=== PATIENT | female | born 1950 | race Caucasian/White ===

== ENCOUNTER 2019-11-18 13:53 | Inpatient (IN) | payer MEDICARE, OTHER ==
[~2019-11-18] VITALS: Ht 162.6 cm; Wt 91.2 kg
[2019-11-18] MEDS ORDERED: ONDANSETRON HCL 4MG/2ML INJ IV STA (14:10)
[2019-11-18] MEDS ORDERED: SODIUM CHLORIDE 0.9% 1,000 ML IV ONE (14:10)
[2019-11-18 14:45] LABS: HEMOGLOBIN. 11.8 g/dL (12.0-16.0); MEAN CORPUSCULAR HEMOGLOBIN 29.2 pg (28.0-32.0); MEAN CORPUSCULAR VOLUME 86.9 fL (81.0-99.0); MEAN PLATELET VOLUME 8.6 fl (7.4-10.4); PLATELET 275 x1000/uL (130-400); RED BLOOD CELL COUNT 4.03 mill/uL (4.2-5.4); RED CELL DISTRIBUTION WIDTH 15.1 % (11.6-14.6)
[2019-11-18 14:54] LABS: CHLORIDE 104 mEq/L (98-107)
[2019-11-18 14:57] LABS: ETHANOL BLOOD < 10 mg/dL
[2019-11-18 15:02] LABS: CREATINE KINASE 172 IU/L (26-192); PLATELET ESTIMATE NORMAL
[2019-11-18 16:23] LABS: CLARITY URINE CLEAR (CLEAR); COLOR URINE YELLOW (YELLOW); KETONES URINE 1+ (NEGATIVE); LEUKOCYTE ESTERASE URINE NEGATIVE (NEGATIVE); NITRITE URINE NEGATIVE (NEGATIVE); OCCULT BLOOD URINE NEGATIVE (NEGATIVE); PROTEIN URINE TRACE (NEGATIVE); SPECIFIC GRAVITY URINE 1.014 (1.005-1.030); UROBILINOGEN URINE 0.2 E.U./dL (0.2-1.0)
[2019-11-18 16:33] LABS: *AMPHETAMINES SCREEN URINE NEGATIVE (NEGATIVE); *BARBITURATES SCREEN URINE NEGATIVE (NEGATIVE); *BENZODIAZEPINES SCREEN URINE NEGATIVE (NEGATIVE); *COCAINE SCREEN URINE NEGATIVE (NEGATIVE); METHADONE URINE SCREEN NEGATIVE (NEGATIVE)
[2019-11-18 16:34] LABS: CANNABINOID URINE SCREEN NEGATIVE (NEGATIVE); OPIATES URINE SCREEN NEGATIVE (NEGATIVE); PHENCYCLIDINE URINE SCREEN NEGATIVE (NEGATIVE)
[2019-11-18] MEDS ORDERED: SODIUM CHLORIDE 0.9% 1000ML BAG (SEPSIS BOLUS) IV ONE (17:15)
[2019-11-18] MEDS ORDERED: SODIUM CHLORIDE 0.9% 1,000 ML IV SCH (17:15)
[2019-11-18] MEDS ORDERED: CEFTRIAXONE 1 G PREMIX 50 ML IV ONE (17:15)
[2019-11-18] MEDS ORDERED: ACETAMINOPHEN 500MG TABLET PO ONE (17:15)
[2019-11-19] VITALS (7 sets, daily range): BP systolic 143–227; BP diastolic 60–107
[2019-11-19] MEDS ORDERED: ONDANSETRON HCL 4MG/2ML INJ IV PRN ×2 (01:15→17:30)
[2019-11-19] MEDS ORDERED: ACETAMINOPHEN 325MG TABLET PO PRN ×2 (01:15→17:30)
[2019-11-19] MEDS: HYDRALAZINE 20MG/ML VIAL IV PRN ×2 (02:00→17:09)
[2019-11-19] MEDS: SODIUM CHLORIDE 0.45% 1,000 ML IV SCH ×2 (04:10→17:00)
[2019-11-19] MEDS: PIPERACILLIN/TAZOBACTAM 3.375 G in DEXT 5% WATER 100 ML IV SCH ×4 (05:35→23:59)
[2019-11-19] MEDS ORDERED: PIPERACILLIN/TAZOBACTAM 3.375 G/VIAL IV SCH (06:00)
[2019-11-19 06:31] LABS: HEMATOCRIT. 34.1 % (36.0-48.0); HEMOGLOBIN. 11.5 g/dL (12.0-16.0); MEAN CORPUSCULAR HEMOGLOBIN 29.5 pg (28.0-32.0); MEAN CORPUSCULAR VOLUME 87.6 fL (81.0-99.0); MEAN PLATELET VOLUME 8.9 fl (7.4-10.4); PLATELET 227 x1000/uL (130-400)
[2019-11-19 06:39] LABS: CHLORIDE 106 mEq/L (98-107)
[2019-11-19 06:46] LABS: LDL CHOLESTEROL 75 mg/dL (5-100)
[2019-11-19 06:47] LABS: HDL CHOLESTEROL 106 mg/dL (40-59)
[2019-11-19] MEDS ORDERED: METOPROLOL TARTRATE 25MG TABLET PO SCH (12:30)
[2019-11-19 15:51] LABS: BG BASE EXCESS -2.9 mmol/L (-2.0-2.0); BG CARBOXYHEMOGLOBIN 0.6 % (0.5-1.5); BG DEOXYHEMOGLOBIN 5.4 % (0.0-5.0); BG FRACTION INSPIRED OXYGEN 21; BG HCO3 ACT 20.2 mmol/L (22.0-26.0); BG OXYGEN SATURATION 94.6 % (92.0-98.5); BG PCO2 30.2 mmHg (35.0-45.0); BG PH 7.443 (7.350-7.450); BG PO2 71.8 mmHg (75.0-100.0); BG SAMPLE SITE RIGHT RADIAL; BG TOTAL HEMOGLOBIN 12.2 g/dL (12.0-18.0); BG VENT MODE ROOM AIR
[2019-11-19 16:41] LABS: CREATINE KINASE MB FRACTION 4.4 ng/mL (0.5-3.6)
[2019-11-19 17:15] LABS: PLATELET ESTIMATE NORMAL
[2019-11-19] MEDS ORDERED: ACETAMINOPHEN 650MG SUPP PR PRN (17:30)
[2019-11-19] MEDS ORDERED: HYDROCODONE/ACETAMINOPHEN 5/325MG TABLET PO PRN (17:30)
[2019-11-19] MEDS ORDERED: MAGNESIUM/ALUMINUM HYDROXIDE/SIMETHICONE 30ML UDC PO PRN (17:30)
[2019-11-19] MEDS ORDERED: CLONIDINE 0.1MG TABLET PO PRN (17:30)
[2019-11-19] MEDS ORDERED: IPRATROPIUM/ALBUTEROL 0.5-3(2.5)MG/3ML NEB HHN PRN (17:30)
[2019-11-19] MEDS ORDERED: DOCUSATE SODIUM 100MG CAPSULE PO PRN (17:30)
[2019-11-19] MEDS ORDERED: DIPHENHYDRAMINE 50MG/ML VIAL IV PRN (17:30)
[2019-11-19] MEDS ORDERED: CLONIDINE 0.1MG TABLET PO NR (18:30)
[2019-11-19] MEDS: ASPIRIN 81MG EC TABLET PO SCH (18:55)
[2019-11-19] MEDS ORDERED: POTASSIUM CHLORIDE INJ 40 MEQ in DEXT 5% WATER 500 ML IV NR (21:00)
[2019-11-19 23:32] LABS: CREATINE KINASE MB FRACTION 3.4 ng/mL (0.5-3.6)
[2019-11-20] VITALS: BP 145/85
[2019-11-20 04:00] VITALS: BP 176/68
[2019-11-20] MEDS: SODIUM CHLORIDE 0.45% 1,000 ML IV SCH (05:13)
[2019-11-20] MEDS: PIPERACILLIN/TAZOBACTAM 3.375 G in DEXT 5% WATER 100 ML IV SCH ×4 (05:13→23:53)
[2019-11-20 07:20] LABS: HEMATOCRIT 32.4 % (36.0-48.0); HEMOGLOBIN 10.9 g/dL (12.0-16.0); MEAN CORPUSCULAR HEMOGLOBIN 29.3 pg (28.0-32.0); MEAN CORPUSCULAR VOLUME 86.9 fL (81.0-99.0); PLATELET 237 x1000/uL (130-400); RED BLOOD CELL COUNT 3.72 mill/uL (4.2-5.4); RED CELL DISTRIBUTION WIDTH 15.4 % (11.6-14.6)
[2019-11-20 07:21] LABS: CHLORIDE 101 mEq/L (98-107)
[2019-11-20 08:00] VITALS: BP 182/80
[2019-11-20] MEDS: ASPIRIN 81MG EC TABLET PO SCH (09:28)
[2019-11-20] MEDS: METOPROLOL TARTRATE 25MG TABLET PO SCH ×2 (09:28)
[2019-11-20] MEDS: HYDRALAZINE 20MG/ML VIAL IV PRN (10:47)
[2019-11-20 12:00] VITALS: BP 192/86
[2019-11-20] MEDS ORDERED: HYDRALAZINE 20MG/ML VIAL IV SCH (14:15)
[2019-11-20] MEDS ORDERED: CLONIDINE 0.1MG TABLET PO SCH (14:15)
[2019-11-20 16:00] VITALS: BP 155/57
[2019-11-20] MEDS: FOLIC ACID 1MG TABLET PO SCH (16:30)
[2019-11-20] MEDS: MULTIVITAMINS,THER W-MINERALS TABLET PO SCH (16:31)
[2019-11-20] MEDS: THIAMINE HCL 100MG TABLET PO SCH (16:31)
[2019-11-20] MEDS: AMLODIPINE 5MG TABLET PO SCH (16:31)
[2019-11-20 20:00] VITALS: BP 152/62
[2019-11-20] MEDS: METOPROLOL TARTRATE 50MG TABLET PO SCH (21:44)
[2019-11-20] MEDS: HYDRALAZINE HCL 50MG TABLET PO SCH (21:44)
[2019-11-21] VITALS: BP 132/52
[2019-11-21 04:00] VITALS: BP 144/51
[2019-11-21] MEDS: HYDRALAZINE HCL 50MG TABLET PO SCH ×2 (06:00→14:32)
[2019-11-21] MEDS: PIPERACILLIN/TAZOBACTAM 3.375 G in DEXT 5% WATER 100 ML IV SCH ×2 (06:05→13:00)
[2019-11-21 07:01] LABS: BASOPHILS % 0.8 % (0.0-2.0); EOSINOPHILS % 2.4 % (0.0-5.0); HEMATOCRIT. 34.7 % (36.0-48.0); HEMOGLOBIN. 11.8 g/dL (12.0-16.0); LYMPHOCYTES % 9.7 % (20.0-50.0); MEAN CORPUSCULAR HEMOGLOBIN 29.9 pg (28.0-32.0); MEAN CORPUSCULAR VOLUME 87.9 fL (81.0-99.0); MEAN PLATELET VOLUME 8.8 fl (7.4-10.4); MONOCYTES % 9.5 % (2.0-8.0); NEUTROPHILS % 77.6 % (40.0-76.0); PLATELET 229 x1000/uL (130-400); RED BLOOD CELL COUNT 3.94 mill/uL (4.2-5.4); RED CELL DISTRIBUTION WIDTH 14.7 % (11.6-14.6)
[2019-11-21 07:14] LABS: CHLORIDE 100 mEq/L (98-107)
[2019-11-21 08:00] VITALS: BP 156/60
[2019-11-21] MEDS: MULTIVITAMINS,THER W-MINERALS TABLET PO SCH (10:53)
[2019-11-21] MEDS: ASPIRIN 81MG EC TABLET PO SCH (10:53)
[2019-11-21] MEDS: FOLIC ACID 1MG TABLET PO SCH (10:54)
[2019-11-21] MEDS: AMLODIPINE 5MG TABLET PO SCH (10:54)
[2019-11-21] MEDS: THIAMINE HCL 100MG TABLET PO SCH (10:54)
[2019-11-21] MEDS: METOPROLOL TARTRATE 50MG TABLET PO SCH (10:55)
[2019-11-21 12:00] VITALS: BP 169/63
[2019-11-21] MEDS ORDERED: FOLI-43 MT (13:49)
[2019-11-21] MEDS ORDERED: MULT1TAB67 MT (13:49)
[2019-11-21] MEDS ORDERED: THIA100T72 MT (13:49)
[2019-11-21] MEDS ORDERED: HYDR-4135 MT (13:49)
[2019-11-21] MEDS ORDERED: AMLO5TAB4 MT (13:49)
[2019-11-21 14:43] VITALS: BP 169/63
== END 2019-11-21 16:57 | disposition home or self-care (01) | DRG 70 ==
LOC: ER 14:25 → 7WST 17:57 → ENRESERV 23:01
PROVIDERS: ADMIT Internal Medicine; ATTEND Internal Medicine
DX: G93.40 Encephalopathy, unspecified (principal); I50.33 Acute on chronic diastolic (congestive) heart failure; J84.9 Interstitial pulmonary disease, unspecified; E87.1 Hypo-osmolality and hyponatremia; M62.82 Rhabdomyolysis; G31.2 Degeneration of nervous system due to alcohol; E87.6 Hypokalemia; F10.10 Alcohol abuse, uncomplicated; I11.0 Hypertensive heart disease with heart failure; D72.829 Elevated white blood cell count, unspecified; R73.9 Hyperglycemia, unspecified; Z78.1 Physical restraint status; Z71.41 Alcohol abuse counseling and surveillance of alcoholic
CPT/HCPCS: 36415; 36600; 70551; 71045; 76700; 80048; 80053; 80061; 80305; 80320; 81003; 82140; 82375; 82550; 82553; 82805; 83605; 83880; 84145; 84443; 84484; 85025; 85027; 87804; 93005; 93306; 97116; 97162; 97530; 97535; 99291; J0360; J0696; J2405; J2543; J3480; J7030; J7060; G0480

== ENCOUNTER 2021-12-06 11:28 | Inpatient (IN) | payer MEDICARE, MEDICAID ==
[~2021-12-06] VITALS: Ht 160 cm; Wt 90.3 kg
[~2021-12-06 11:28] MED LIST: AMLO5TAB4 MT; FOLI-43 MT; HYDR-4135 MT; MULT-622 MT; THIA100T72 MT
[2021-12-06] MEDS ORDERED: FUROSEMIDE 40MG/4ML VIAL IV ONE (12:00)
[2021-12-06 12:20] LABS: HEMATOCRIT. 32.6 % (36.0-48.0); HEMOGLOBIN. 11.1 g/dL (12.0-16.0); MEAN CORPUSCULAR HEMOGLOBIN 28.5 pg (28.0-32.0); MEAN CORPUSCULAR VOLUME 83.8 fL (81.0-99.0); MEAN PLATELET VOLUME 8.3 fl (7.4-10.4); PLATELET 288 x1000/uL (130-400); RED BLOOD CELL COUNT 3.88 mill/uL (4.2-5.4); RED CELL DISTRIBUTION WIDTH 14.1 % (11.6-14.6)
[2021-12-06 12:26] LABS: CHLORIDE 101 mEq/L (98-107)
[2021-12-06] MEDS ORDERED: ASPIRIN 325MG EC TABLET PO NR (13:15)
[2021-12-06] MEDS ORDERED: KCL 10MEQ/50ML PREMIX 50 ML IV NR (13:30)
[2021-12-06] MEDS ORDERED: POTASSIUM CHLORIDE 20MEQ TABLET SR PO NR (13:30)
[2021-12-06 14:01] LABS: PLATELET ESTIMATE NORMAL
[2021-12-06 15:15] LABS: CLARITY URINE TURBID (CLEAR); COLOR URINE YELLOW (YELLOW); KETONES URINE TRACE (NEGATIVE); LEUKOCYTE ESTERASE URINE 2+ (NEGATIVE); NITRITE URINE NEGATIVE (NEGATIVE); OCCULT BLOOD URINE NEGATIVE (NEGATIVE); PH URINE 6.5 (4.5-8.0); PROTEIN URINE NEGATIVE (NEGATIVE); SPECIFIC GRAVITY URINE 1.007 (1.005-1.030); UROBILINOGEN URINE 0.2 E.U./dL (0.2-1.0)
[2021-12-06] MEDS ORDERED: IOHEXOL-350 100 ML BOTTLE ONE (15:23)
[2021-12-06] MEDS ORDERED: CEFTRIAXONE 1 G PREMIX 50 ML IV ONE (15:30)
[2021-12-06 21:00] VITALS: BP 148/64
[2021-12-06] MEDS ORDERED: LISI40TA13 MT (21:27)
[2021-12-06] MEDS ORDERED: PRAV20TA57 MT (21:27)
[2021-12-06] MEDS ORDERED: CITA10SO PO (21:31)
[2021-12-06] MEDS ORDERED: ATEN-42 PO (21:38)
[2021-12-06] MEDS ORDERED: HYDR12.54 PO (21:38)
[2021-12-06] MEDS ORDERED: ZOLPIDEM TARTRATE 5MG TABLET PO PRN (22:15)
[2021-12-06] MEDS ORDERED: CEFTRIAXONE 1 G PREMIX 50 ML IV SCH (22:15)
[2021-12-06] MEDS ORDERED: DOCUSATE SODIUM 100MG CAPSULE PO PRN (22:15)
[2021-12-06] MEDS ORDERED: ACETAMINOPHEN 325MG TABLET PO PRN (22:15)
[2021-12-06] MEDS ORDERED: IPRATROPIUM/ALBUTEROL 0.5-3(2.5)MG/3ML NEB HHN PRN (22:15)
[2021-12-06 22:45] VITALS: BP 148/64
[2021-12-06] MEDS: POTASSIUM CHLORIDE 20MEQ TABLET SR PO SCH (23:41)
[2021-12-06] MEDS: ATORVASTATIN CALCIUM 20MG TABLET PO SCH (23:41)
[2021-12-06] MEDS: FUROSEMIDE 40MG/4ML VIAL IVP SCH (23:41)
[2021-12-06] MEDS: LISINOPRIL 40MG TABLET PO SCH (23:41)
[2021-12-07] VITALS: BP 155/50
[2021-12-07 04:00] VITALS: BP 137/83
[2021-12-07] MEDS: HYDRALAZINE HCL 50MG TABLET PO SCH ×3 (05:52→21:12)
[2021-12-07 07:29] LABS: BASOPHILS % 0.7 % (0.0-2.0); EOSINOPHILS % 3.3 % (0.0-5.0); HEMATOCRIT. 37.4 % (36.0-48.0); LYMPHOCYTES % 9.2 % (20.0-50.0); MEAN CORPUSCULAR HEMOGLOBIN 27.2 pg (28.0-32.0); MEAN CORPUSCULAR VOLUME 84.7 fL (81.0-99.0); MEAN PLATELET VOLUME 8.4 fl (7.4-10.4); MONOCYTES % 12.3 % (2.0-8.0); NEUTROPHILS % 74.5 % (40.0-76.0); PLATELET 277 x1000/uL (130-400); RED BLOOD CELL COUNT 4.42 mill/uL (4.2-5.4); RED CELL DISTRIBUTION WIDTH 14.4 % (11.6-14.6)
[2021-12-07 07:44] LABS: CHLORIDE 99 mEq/L (98-107)
[2021-12-07 08:00] VITALS: BP 135/49
[2021-12-07 08:02] LABS: TOTAL IRON BINDING CAPACITY 381 ug/dL (250-450)
[2021-12-07 08:05] LABS: FOLIC ACID (FOLATE) SERUM 7.7 ng/mL (>5.38)
[2021-12-07] MEDS: FOLIC ACID/VITAMIN B COMP W-C TABLET PO SCH (08:48)
[2021-12-07] MEDS: ENOXAPARIN 40MG/0.4ML SYR SUBCUT SCH (08:48)
[2021-12-07] MEDS: FUROSEMIDE 40MG/4ML VIAL IVP SCH (08:48)
[2021-12-07] MEDS: CEFTRIAXONE 1,000 MG in DEXTROSE 5% WATER 50 ML IV SCH (08:48)
[2021-12-07] MEDS: AMLODIPINE 5MG TABLET PO SCH (08:48)
[2021-12-07] MEDS: FOLIC ACID 1MG TABLET PO SCH (08:49)
[2021-12-07] MEDS: LISINOPRIL 40MG TABLET PO SCH (08:49)
[2021-12-07] MEDS: FAMOTIDINE 20MG TABLET PO SCH ×2 (08:49→21:12)
[2021-12-07] MEDS: THIAMINE HCL 100MG TABLET PO SCH (08:49)
[2021-12-07] MEDS: CITALOPRAM HYDROBROMIDE 10MG TABLET PO SCH (08:49)
[2021-12-07] MEDS ORDERED: ATENOLOL 25MG TABLET PO SCH (09:00)
[2021-12-07 10:04] LABS: BG BASE EXCESS 9.7 mmol/L (-2.0-2.0); BG CARBOXYHEMOGLOBIN 0.9 % (0.5-1.5); BG DEOXYHEMOGLOBIN 2.9 % (0.0-5.0); BG FRACTION INSPIRED OXYGEN 28; BG HCO3 ACT 34.1 mmol/L (22.0-26.0); BG METHEMOGLOBIN 0.3 % (0.0-1.5); BG OXYGEN SATURATION 97.1 % (92.0-98.5); BG OXYHEMOGLOBIN 95.9 % (94.0-97.0); BG PCO2 45.6 mmHg (35.0-45.0); BG PH 7.492 (7.350-7.450); BG PO2 92.4 mmHg (75.0-100.0); BG VENT MODE NASAL CANNULA
[2021-12-07 12:00] VITALS: BP 118/50
[2021-12-07] MEDS ORDERED: POTASSIUM CHLORIDE 20MEQ TABLET SR PO NR (13:00)
[2021-12-07 16:00] VITALS: BP 104/56
[2021-12-07 20:00] VITALS: BP 136/53
[2021-12-07] MEDS: ATORVASTATIN CALCIUM 20MG TABLET PO SCH (21:12)
[2021-12-07] MEDS: POTASSIUM CHLORIDE 20MEQ TABLET SR PO SCH (22:31)
[2021-12-08] VITALS: BP 116/48
[2021-12-08 04:00] VITALS: BP 141/46
[2021-12-08] MEDS: HYDRALAZINE HCL 50MG TABLET PO SCH ×3 (06:08→21:48)
[2021-12-08 06:51] LABS: CHLORIDE 100 mEq/L (98-107)
[2021-12-08 06:58] LABS: BASOPHILS % 0.6 % (0.0-2.0); EOSINOPHILS % 3.1 % (0.0-5.0); HEMOGLOBIN. 10.5 g/dL (12.0-16.0); LYMPHOCYTES % 9.4 % (20.0-50.0); MEAN CORPUSCULAR HEMOGLOBIN 28.5 pg (28.0-32.0); MEAN CORPUSCULAR VOLUME 83.8 fL (81.0-99.0); MEAN PLATELET VOLUME 8.5 fl (7.4-10.4); MONOCYTES % 11.3 % (2.0-8.0); NEUTROPHILS % 75.6 % (40.0-76.0); PLATELET 242 x1000/uL (130-400); RED CELL DISTRIBUTION WIDTH 14.1 % (11.6-14.6)
[2021-12-08 07:02] LABS: LDL CHOLESTEROL 61 mg/dL (5-100)
[2021-12-08 07:04] LABS: HDL CHOLESTEROL 77 mg/dL (40-59)
[2021-12-08 08:00] VITALS: BP 126/50
[2021-12-08] MEDS: CEFTRIAXONE 1,000 MG in DEXTROSE 5% WATER 50 ML IV SCH (08:59)
[2021-12-08] MEDS: FUROSEMIDE 40MG/4ML VIAL IVP SCH (08:59)
[2021-12-08] MEDS: FOLIC ACID 1MG TABLET PO SCH (09:00)
[2021-12-08] MEDS: FOLIC ACID/VITAMIN B COMP W-C TABLET PO SCH (09:00)
[2021-12-08] MEDS: ENOXAPARIN 40MG/0.4ML SYR SUBCUT SCH (09:00)
[2021-12-08] MEDS: AMLODIPINE 5MG TABLET PO SCH (09:00)
[2021-12-08] MEDS: LISINOPRIL 40MG TABLET PO SCH (09:00)
[2021-12-08] MEDS: THIAMINE HCL 100MG TABLET PO SCH (09:00)
[2021-12-08] MEDS: FAMOTIDINE 20MG TABLET PO SCH ×2 (09:00→21:48)
[2021-12-08] MEDS: CITALOPRAM HYDROBROMIDE 10MG TABLET PO SCH (09:00)
[2021-12-08 12:00] VITALS: BP 122/67
[2021-12-08 15:52] VITALS: BP 110/45
[2021-12-08 20:00] VITALS: BP 132/45
[2021-12-08] MEDS: ATORVASTATIN CALCIUM 20MG TABLET PO SCH (21:47)
[2021-12-08] MEDS: POTASSIUM CHLORIDE 20MEQ TABLET SR PO SCH (21:48)
[2021-12-09] VITALS: BP 120/46
[2021-12-09 04:00] VITALS: BP 142/55
[2021-12-09] MEDS: HYDRALAZINE HCL 50MG TABLET PO SCH ×2 (05:14→14:32)
[2021-12-09 07:16] LABS: CHLORIDE 100 mEq/L (98-107)
[2021-12-09 07:21] LABS: BASOPHILS % 0.6 % (0.0-2.0); HEMATOCRIT. 32.8 % (36.0-48.0); HEMOGLOBIN. 10.9 g/dL (12.0-16.0); MEAN CORPUSCULAR VOLUME 83.9 fL (81.0-99.0); MEAN PLATELET VOLUME 8.6 fl (7.4-10.4); MONOCYTES % 10.2 % (2.0-8.0); NEUTROPHILS % 78.2 % (40.0-76.0); PLATELET 251 x1000/uL (130-400); RED BLOOD CELL COUNT 3.91 mill/uL (4.2-5.4); RED CELL DISTRIBUTION WIDTH 14.1 % (11.6-14.6)
[2021-12-09 08:00] VITALS: BP 140/50
[2021-12-09] MEDS: FOLIC ACID/VITAMIN B COMP W-C TABLET PO SCH (09:24)
[2021-12-09] MEDS: FUROSEMIDE 40MG/4ML VIAL IVP SCH (09:24)
[2021-12-09] MEDS: ENOXAPARIN 40MG/0.4ML SYR SUBCUT SCH (09:24)
[2021-12-09] MEDS: CITALOPRAM HYDROBROMIDE 10MG TABLET PO SCH (09:25)
[2021-12-09] MEDS: THIAMINE HCL 100MG TABLET PO SCH (09:25)
[2021-12-09] MEDS: FOLIC ACID 1MG TABLET PO SCH (09:25)
[2021-12-09] MEDS: FAMOTIDINE 20MG TABLET PO SCH (09:25)
[2021-12-09] MEDS: LISINOPRIL 40MG TABLET PO SCH (09:25)
[2021-12-09] MEDS: CEFTRIAXONE 1,000 MG in DEXTROSE 5% WATER 50 ML IV SCH (09:25)
[2021-12-09] MEDS: AMLODIPINE 5MG TABLET PO SCH (09:25)
[2021-12-09 12:00] VITALS: BP 111/48
[2021-12-09] MEDS ORDERED: POTASSIUM CHLORIDE 20MEQ TABLET SR PO SCH (14:00)
[2021-12-09 14:08] VITALS: BP 111/48
[2021-12-09] MEDS ORDERED: AMLODIPINE 5MG TABLET PO SCH (21:00)
[2021-12-10] MEDS ORDERED: ENOXAPARIN 30MG/0.3ML SYR SUBCUT SCH (09:00)
== END 2021-12-09 17:03 | disposition home or self-care (01) | DRG 291 ==
LOC: ER 11:28 → EDBEDREQTM 13:03 → EDBEDREQ 13:03 → EDBEDREQTM 16:02 → ENRESERV 19:56 → 5WST 21:10
PROVIDERS: ADMIT Internal Medicine Pulmonary Disease; ATTEND Internal Medicine Pulmonary Disease
DX: I11.0 Hypertensive heart disease with heart failure (principal); J96.01 Acute respiratory failure with hypoxia; I50.23 Acute on chronic systolic (congestive) heart failure; N39.0 Urinary tract infection, site not specified; D64.9 Anemia, unspecified; E78.5 Hyperlipidemia, unspecified; E87.6 Hypokalemia; I42.9 Cardiomyopathy, unspecified; F10.20 Alcohol dependence, uncomplicated; R07.89 Other chest pain; R00.1 Bradycardia, unspecified; Z20.822 Contact with and (suspected) exposure to COVID-19; E66.01 Morbid (severe) obesity due to excess calories; W01.0XXA Fall on same level from slipping, tripping and stumbling without subsequent striking against object, initial encounter; I44.7 Left bundle-branch block, unspecified; Y93.89 Activity, other specified; Y92.89 Other specified places as the place of occurrence of the external cause; Y99.8 Other external cause status; Z88.8 Allergy status to other drugs, medicaments and biological substances; Z79.899 Other long term (current) drug therapy; Z98.51 Tubal ligation status; Z98.49 Cataract extraction status, unspecified eye; Z88.6 Allergy status to analgesic agent; Z91.018 Allergy to other foods; Z68.35 Body mass index [BMI] 35.0-35.9, adult
CPT/HCPCS: 36415; 36600; 71045; 71275; 80048; 80053; 80061; 81003; 82375; 82607; 82746; 82805; 83036; 83540; 83550; 83735; 83880; 84443; 84484; 85025; 85379; 87426; 93005; 93306; 93970; 99291; J0696; J1650; J1940; J3480; J7060; Q9967

== ENCOUNTER 2023-01-20 14:37 | Emergency (ER) | payer MEDICARE, OTHER ==
[~2023-01-20] VITALS: Ht 160 cm; Wt 91.0 kg
[~2023-01-20 14:37] MED LIST changes: +ATEN-42 PO; +CITA10SO PO; +HYDR12.54 PO; +LISI40TA13 MT; +PRAV20TA57 MT
[2023-01-20 17:00] VITALS: BP 130/79
== END 2023-01-20 19:58 | disposition home or self-care (01) ==
LOC: ER 14:37
DX: F10.129 Alcohol abuse with intoxication, unspecified (principal); I11.0 Hypertensive heart disease with heart failure; I50.9 Heart failure, unspecified; Z88.6 Allergy status to analgesic agent; Z91.018 Allergy to other foods; Z79.899 Other long term (current) drug therapy; Y90.9 Presence of alcohol in blood, level not specified
CPT/HCPCS: 99283

== ENCOUNTER 2023-03-31 16:14 | Emergency (ER) | payer OTHER ==
[~2023-03-31] VITALS: Ht 160 cm; Wt 90.0 kg
[2023-03-31 16:18] VITALS: BP 117/73; PULSE 70; RESP 16; TEMP 97.5; O2SAT 95
[2023-03-31 17:19] LABS: BASOPHILS % 0.8 % (0.0-2.0); EOSINOPHILS % 2.4 % (0.0-5.0); HEMATOCRIT. 39.7 % (36.0-48.0); HEMOGLOBIN. 13.5 g/dL (12.0-16.0); LYMPHOCYTES % 20.4 % (20.0-50.0); MEAN CORPUSCULAR HEMOGLOBIN 29.9 pg (28.0-32.0); MEAN CORPUSCULAR VOLUME 87.5 fL (81.0-99.0); MEAN PLATELET VOLUME 8.7 fl (7.4-10.4); MONOCYTES % 7.3 % (2.0-8.0); NEUTROPHILS % 69.1 % (40.0-76.0); PLATELET 229 x1000/uL (130-400); RED BLOOD CELL COUNT 4.53 mill/uL (4.2-5.4); RED CELL DISTRIBUTION WIDTH 13.5 % (11.6-14.6)
[2023-03-31 17:26] LABS: CHLORIDE 106 mEq/L (98-107)
[2023-03-31 17:42] LABS: ETHANOL BLOOD 122 mg/dL (-10)
== END 2023-03-31 19:37 | disposition left against medical advice (07) ==
LOC: ER 16:14
DX: I10 Essential (primary) hypertension (principal); E78.00 Pure hypercholesterolemia, unspecified; F32.9 Major depressive disorder, single episode, unspecified
CPT/HCPCS: 36415; 80053; 80307; 80320; 84443; 85025; 99283; G0480